=== PATIENT | female | born 1990 | race African-American/Black ===

== ENCOUNTER 2017-07-25 19:03 | Emergency (ER) | payer OTHER ==
[~2017-07-25] VITALS: Ht 162.5 cm; Wt 106.6 kg
[~2017-07-25 19:03] MED LIST: ANAPROX DS550 MG PO; AUGMENTIN 875 M1 TAB PO; AUGMENTIN 875875 MG PO; CIPRODEX 0.3%-7.5 ML OT; CLARITIN10 MG PO; ELIMITE 5%60 GM PO; FLONASE ALLERG9.9 ML NAS; IBUPROFEN PO; KEFLEX500 MG PO; LEXAPRO10 MG PO; MACROBID100 M1 PO; MIRTAZAPINE15 M2 PO; MOTRIN600 MG PO; NO DAILY MEDS; PREDNISONE10 MG PO; PRENATAL1 TA7 PO; REXULTI1 MG PO; ROBITUSSIN AC 110 ML PO; SALINE NAS; SEPTRA DS 800 M1 TAB PO; TYLENOL WITH CO1 TA1 PO; VENTOLIN H0.09 MG/AC INH; VITAMIN D50000 I3 PO; VOLTAREN75 MG PO; ZANAFLEX4 M1 PO; ZITHROMAX Z PA250 MG PO; ZOFRAN ODT4 MG SL; ZYRTEC10 M1 PO; ZYRTEC10 MG PO; Zofran4 MG PO
[2017-07-25 19:35] LABS: BASO % 0.1 % (0.0-1.0); EOS # 0.2 10*3/uL (0.0-0.4); EOS % 2.2 % (1.0-4.0); HEMATOCRIT 35.4 % (37.0-47.0); HEMOGLOBIN 10.7 g/dl (12.0-16.0); LYMPH % 28.3 % (27.0-41.0); MEAN CELL VOLUME 79.6 fl (81.0-99.0); MEAN CORPUSCULAR HGB CONC 30.2 g/dl (33.0-37.0); MEAN PLATELET VOLUME 8.6 fl (9.6-12.3); MONO # 0.5 10*3/uL (0.1-1.0); MONO % 7.1 % (3.0-9.0); NEUT # 4.5 10*3/uL (2.3-7.9); NEUT % 62.2 % (47.0-73.0); PLATELET COUNT AUTOMATED 423 10*3/uL (130-400); RED BLOOD COUNT 4.45 10*6/uL (4.10-5.10); RED CELL DISTRI WIDTH 16.1 % (0-14.5); WHITE BLOOD COUNT 7.2 10*3/uL (4.8-10.8)
[2017-07-25 19:52] LABS: ALBUMIN 3.4 gm/dl (3.1-4.5); ALKALINE PHOSPHATASE 75 U/L (45-117); BUN 11 mg/dl (7-24); CHLORIDE 103 mmol/L (98-107); CREATININE 0.73 mg/dL (0.55-1.02); POTASSIUM 3.5 mmol/L (3.5-5.1); SGOT/AST 15 IU/L (3-35); SGPT/ALT 17 U/L (12-78); SODIUM 138 mmol/L (136-145); TOTAL PROTEIN 8.2 gm/dL (6.4-8.2)
[2017-07-25 20:03] LABS: BILIRUBIN NEGATIVE (NEGATIVE); BLOOD 3+ (NEGATIVE); CLARITY CLEAR (CLEAR); COLOR YELLOW (YELLOW); GLUCOSE NEGATIVE (NEGATIVE); KETONE NEGATIVE (NEGATIVE); LEUKO ESTERASE TRACE (NEGATIVE); NITRITE NEGATIVE (NEGATIVE); SPECIFIC GRAVITY 1.025 (1.005-1.030); UROBILINOGEN 0.2 E.U./dl (0.2-1.0)
[2017-07-25 20:10] LABS: BACTERIA 2+; RBC 0-2 rbc/hpf (0-2)
== END 2017-07-25 22:57 | disposition home or self-care (01) ==
LOC: ED 19:03
PROVIDERS: Nurse Practitioner Family
DX: R51 Headache (principal); R03.0 Elevated blood-pressure reading, without diagnosis of hypertension; Z88.1 Allergy status to other antibiotic agents

== ENCOUNTER 2018-04-01 20:09 | Emergency (ER) | payer OTHER ==
[~2018-04-01] VITALS: Ht 162.5 cm; Wt 113.4 kg
== END 2018-04-01 20:27 | disposition left against medical advice (07) ==
LOC: ED 20:09
DX: N64.4 Mastodynia (principal); Z53.21 Procedure and treatment not carried out due to patient leaving prior to being seen by health care provider

== ENCOUNTER 2019-12-19 18:46 | Emergency (ER) | payer OTHER ==
[~2019-12-19] VITALS: Ht 162.5 cm; Wt 116.6 kg
[2019-12-19] MEDS ORDERED: Motrin,Rufen800 MG PO (20:24)
== END 2019-12-19 21:00 | disposition home or self-care (01) ==
LOC: ED 18:46
DX: S93.491A Sprain of other ligament of right ankle, initial encounter (principal); S93.601A Unspecified sprain of right foot, initial encounter; E66.01 Morbid (severe) obesity due to excess calories; Z88.1 Allergy status to other antibiotic agents; Z79.899 Other long term (current) drug therapy; Z68.43 Body mass index [BMI] 50.0-59.9, adult; W01.0XXA Fall on same level from slipping, tripping and stumbling without subsequent striking against object, initial encounter; Y93.89 Activity, other specified; Y92.89 Other specified places as the place of occurrence of the external cause; Y99.8 Other external cause status

== ENCOUNTER → 2020-03-24 | Outpatient (CLI) | payer OTHER ==
[~2020-03-24] MED LIST changes: +Motrin,Rufen800 MG PO
[2020-03-24 15:06] LABS: HEMATOCRIT 36.4 % (37.0-47.0); MEAN CORPUSCULAR HGB 23.6 pg (27.0-31.0); MEAN CORPUSCULAR HGB CONC 29.9 g/dl (33.0-37.0); MEAN PLATELET VOLUME 8.1 fl (9.6-12.3); PLATELET COUNT AUTOMATED 446 10*3/uL (130-400); RED BLOOD COUNT 4.61 10*6/uL (4.10-5.10); RED CELL DISTRI WIDTH 16.4 % (0-14.5); WHITE BLOOD COUNT 5.9 10*3/uL (4.8-10.8)
[2020-03-24 15:39] LABS: BASOPHILS 1 % (0-1); TOTAL CELLS COUNTED 100 #CELLS
[2020-03-24 15:41] LABS: MICROCYTOSIS SLIGHT; PLATELET SUFFICIENCY HIGH (NORMAL); POLYCHROMASIA SLIGHT
== END | disposition home or self-care (01) ==
LOC: LAB 14:47
PROVIDERS: Family Medicine
DX: D50.9 Iron deficiency anemia, unspecified (principal); D69.6 Thrombocytopenia, unspecified

== ENCOUNTER → 2020-03-29 | Outpatient (CLI) | payer OTHER ==
[2020-03-29 10:30] LABS: IRON 43 ug/dL (50-170); TOTAL IRON BINDING CAPACITY 364 ug/dl (250-450)
[2020-03-30 05:04] LABS: TOTAL PROTEIN, SERUM 7.4 g/dL (6.0-8.5)
[2020-03-30 11:08] LABS: ANTI-DSDNA ANTIBODIES 15 IU/mL (0-9); ANTI-RNP ANTIBODIES <0.2 AI (0.0-0.9); ANTICHROMATIN ANTIBODIES <0.2 AI (0.0-0.9); ANTISCLERODERMA-70 AB <0.2 AI (0.0-0.9); SJOGREN ANTI-SS-A <0.2 AI (0.0-0.9); SJOREN AB, ANTI-SS-B <0.2 AI (0.0-0.9)
[2020-03-30 15:04] LABS: A/G RATIO 0.8 (0.7-1.7); ALBUMIN 3.3 g/dL (2.9-4.4); ALPHA-1-GLOBULIN 0.3 g/dL (0.0-0.4); ALPHA-2-GLOBULIN 0.9 g/dL (0.4-1.0); BETA GLOBULIN 1.2 g/dL (0.7-1.3); GAMMA GLOBULIN 1.7 g/dL (0.4-1.8); GLOBULIN, TOTAL 4.1 g/dL (2.2-3.9); M-SPIKE Not Observed g/dL (Not Observed)
[2020-03-31 06:10] LABS: APTT 26.5 sec (22.9-30.2)
== END | disposition home or self-care (01) ==
LOC: LAB 09:27
PROVIDERS: Family Medicine
DX: D50.9 Iron deficiency anemia, unspecified (principal); D69.6 Thrombocytopenia, unspecified; R53.83 Other fatigue; E55.9 Vitamin D deficiency, unspecified; N92.0 Excessive and frequent menstruation with regular cycle; Z82.49 Family history of ischemic heart disease and other diseases of the circulatory system

== ENCOUNTER 2020-11-29 08:55 | Emergency (ER) | payer OTHER ==
[~2020-11-29] VITALS: Ht 162.5 cm; Wt 136.1 kg
[2020-11-29 09:28] LABS: BILIRUBIN Negative (Negative); BLOOD 3+ (Negative); CLARITY Turbid (Clear); COLOR Red (Yellow); GLUCOSE Negative (Negative); KETONE Negative (Negative); LEUKO ESTERASE 1+ (Negative); NITRITE Negative (Negative); PH 6.5 (4.5-8.0)
[2020-11-29 09:32] LABS: BASO % 0.1 % (0.0-1.0); EOS # 0.1 10*3/uL (0.0-0.4); EOS % 1.8 % (1.0-4.0); HEMATOCRIT 34.9 % (37.0-47.0); LYMPH # 1.9 10*3/uL (1.3-4.4); LYMPH % 27.2 % (27.0-41.0); MEAN CELL VOLUME 77.2 fl (81.0-99.0); MEAN CORPUSCULAR HGB 22.1 pg (27.0-31.0); MEAN CORPUSCULAR HGB CONC 28.7 g/dl (33.0-37.0); MEAN PLATELET VOLUME 8.3 fl (9.6-12.3); MONO # 0.6 10*3/uL (0.1-1.0); MONO % 8.3 % (3.0-9.0); NEUT # 4.4 10*3/uL (2.3-7.9); PLATELET COUNT AUTOMATED 550 10*3/uL (130-400); RED BLOOD COUNT 4.52 10*6/uL (4.10-5.10); WHITE BLOOD COUNT 7.1 10*3/uL (4.8-10.8)
[2020-11-29 09:45] LABS: RBC TNTC rbc/hpf (0-2)
[2020-11-29 09:47] LABS: ALBUMIN 3.4 gm/dl (3.1-4.5); ALKALINE PHOSPHATASE 61 U/L (45-117); BUN 6 mg/dl (7-24); CHLORIDE 105 mmol/L (98-107); CREATININE 0.75 mg/dL (0.55-1.02); POTASSIUM 3.7 mmol/L (3.5-5.1); SGOT/AST 7 IU/L (3-35); SGPT/ALT 15 U/L (12-78); SODIUM 136 mmol/L (136-145); TOTAL PROTEIN 8.2 gm/dL (6.4-8.2)
== END 2020-11-29 10:22 | disposition home or self-care (01) ==
LOC: ED 08:55
PROVIDERS: Registered Nurse
DX: O03.4 Incomplete spontaneous abortion without complication (principal); O10.911 Unspecified pre-existing hypertension complicating pregnancy, first trimester; Z3A.09 9 weeks gestation of pregnancy; Z79.2 Long term (current) use of antibiotics; Z79.899 Other long term (current) drug therapy; Z98.890 Other specified postprocedural states; Z96.22 Myringotomy tube(s) status

== ENCOUNTER → 2021-01-25 | Outpatient (CLI) | payer OTHER | END | disposition home or self-care (01) | LOC: US 13:30 | PROVIDERS: ATTEND Nurse Practitioner Women's Health | DX: D25.0 Submucous leiomyoma of uterus (principal); O02.1 Missed abortion ==

== ENCOUNTER → 2023-06-13 | Day surgery (SDC) | payer OTHER ==
[2023-06-12 11:35] LABS: BUN 10 mg/dl (9-23); CHLORIDE 104 mmol/L (98-107); POTASSIUM 4.2 mmol/L (3.4-5.1)
[~2023-06-13] VITALS: Ht 162.5 cm; Wt 145.1 kg
[2023-06-13 06:59] VITALS: BP 121/67
[2023-06-13 08:20] VITALS: BP 118/49
[2023-06-13 08:35] VITALS: BP 115/57
[2023-06-13 08:50] VITALS: BP 109/53
== END ==
LOC: SDC 06-10 08:45
PROVIDERS: ATTEND Orthopaedic Surgery
DX: G56.03 Carpal tunnel syndrome, bilateral upper limbs (principal); F32.A Depression, unspecified; E11.9 Type 2 diabetes mellitus without complications; M32.9 Systemic lupus erythematosus, unspecified; G43.909 Migraine, unspecified, not intractable, without status migrainosus; Z79.899 Other long term (current) drug therapy; Z98.890 Other specified postprocedural states; Z98.891 History of uterine scar from previous surgery

== ENCOUNTER → 2023-08-08 | Day surgery (SDC) | payer OTHER ==
[~2023-08-08] VITALS: Ht 162.5 cm; Wt 127.0 kg
[2023-08-08 07:29] VITALS: BP 124/74
[2023-08-08 08:12] VITALS: BP 149/106
[2023-08-08 08:26] VITALS: BP 139/89
[2023-08-08 08:44] VITALS: BP 145/81
== END | disposition home or self-care (01) ==
LOC: SDC 07-22 09:30
PROVIDERS: ATTEND Orthopaedic Surgery
DX: G56.03 Carpal tunnel syndrome, bilateral upper limbs (principal); F32.A Depression, unspecified; Z88.1 Allergy status to other antibiotic agents

== ENCOUNTER → 2024-01-20 | Outpatient (CLI) | payer OTHER | END | disposition home or self-care (01) | LOC: RAD 09:47 | PROVIDERS: ATTEND Family Medicine | DX: R07.9 Chest pain, unspecified (principal) ==

== ENCOUNTER 2024-02-06 10:53 | Emergency (ER) | payer OTHER ==
[2024-02-06] MEDS ORDERED: IBU800 MG PO (12:04)
== END 2024-02-06 12:07 | disposition home or self-care (01) ==
LOC: ED 10:53
DX: S93.401A Sprain of unspecified ligament of right ankle, initial encounter (principal); M25.561 Pain in right knee; I10 Essential (primary) hypertension; F32.A Depression, unspecified; D64.9 Anemia, unspecified; Z88.1 Allergy status to other antibiotic agents; Z98.890 Other specified postprocedural states; W10.8XXA Fall (on) (from) other stairs and steps, initial encounter; Y93.89 Activity, other specified; Y92.89 Other specified places as the place of occurrence of the external cause; Y99.8 Other external cause status

== ENCOUNTER → 2024-02-28 | Outpatient (CLI) | payer OTHER ==
[~2024-02-28] MED LIST changes: +IBU800 MG PO
== END | disposition home or self-care (01) ==
LOC: ORTHO 08:52
PROVIDERS: ATTEND Orthopaedic Surgery
DX: M25.572 Pain in left ankle and joints of left foot (principal); M79.605 Pain in left leg

== ENCOUNTER 2024-12-15 10:02 | Emergency (ER) | payer OTHER ==
[~2024-12-15] VITALS: Ht 162.5 cm; Wt 13.6 kg
[2024-12-15] MEDS ORDERED: Ketorolac Tromethamine 30 MG/ML VIAL IM ONE (10:40)
[2024-12-15] MEDS ORDERED: methylPREDNISolone acetate 40 MG/ML VIAL IM ONE (10:40)
[2024-12-15] MEDS ORDERED: tiZANidine Hydrochloride 4 MG TAB PO ONE (10:40)
[2024-12-15] MEDS ORDERED: Acetaminophen/Oxycodone Hydr 7.5 MG/325 MG TABLET PO ONE (12:10)
[2024-12-15] MEDS ORDERED: MEDROL DOSEPAK4 MG PO (13:07)
[2024-12-15] MEDS ORDERED: OXYCODONE-ACET1 EAC3 PO (13:07)
[2024-12-15] MEDS ORDERED: ZANAFLEX4 MG PO (13:07)
[2024-12-15] MEDS ORDERED: NAPROSYN500 MG PO (13:07)
== END 2024-12-15 13:11 | disposition home or self-care (01) ==
LOC: ED 10:02
DX: M54.41 Lumbago with sciatica, right side (principal); M79.604 Pain in right leg; Z88.1 Allergy status to other antibiotic agents; Z98.890 Other specified postprocedural states